=== PATIENT | female | born 1955 | race Two or more races ===

== ENCOUNTER → 2019-02-04 | Outpatient (CLI) | payer BC | END | disposition home or self-care (01) | LOC: LAB 12:34 | PROVIDERS: ATTEND Internal Medicine | DX: E30.0 Delayed puberty (principal) | CPT/HCPCS: 87086 ==

== ENCOUNTER → 2019-05-11 | Outpatient (CLI) | payer BC ==
[2019-05-11 12:46] LABS: Urine WBC None Seen /hpf (0 - 5)
[2019-05-11 13:00] LABS: Basophils # (auto) 0 uL; Basophils % (auto) 0.9 % (0.0-2.0); Eosinophils # (auto) 0 uL; Eosinophils % (auto) 1.1 % (0.0-7.0); Hematocrit 45.8 % (36.0-46.0); Hemoglobin 15.4 g/dL (12.2-16.2); Lymphocytes # (auto) 0.9 uL; Lymphocytes % (auto) 20.5 % (10.0-50.0); Mean Corpuscular Hemoglobin 31.9 pg (28.0-32.0); Mean Corpuscular Hgb Conc. 33.6 g/dL (32.0-36.0); Mean Corpuscular Volume 95.1 fL (80.0-100.0); Monocytes # (auto) 0.4 uL; Monocytes % (auto) 8.8 % (0.0-12.0); Neutrophils # (auto) 2.9 uL; Neutrophils % (auto) 68.7 % (37.0-80.0); Platelet Count (auto) 226 10^3/uL (140-450); Red Blood Cells 4.82 10^6/uL (4.0-5.20); Red Cell Distribution Width 13.1 % (11.8-14.3); Urine Bacteria NONE SEEN /hpf (None Seen); Urine Blood Negative /uL (Negative); Urine Specific Gravity 1.004 (1.001-1.035); White Blood Cell 4.2 10^3/uL (4.4-10.8)
[2019-05-11 13:40] LABS: Potassium 4.2 mmol/L (3.5-5.1)
[2019-05-11 13:53] LABS: Albumin 4.1 g/dL (3.4-5.0); Bilirubin, Total 0.9 mg/dL (0.2-1.0); Calcium 9.5 mg/dL (8.5-10.1); Total Protein 7.3 g/dL (6.4-8.2)
== END | disposition home or self-care (01) ==
LOC: LAB 11:59
PROVIDERS: ATTEND Internal Medicine
DX: E78.5 Hyperlipidemia, unspecified (principal); I10 Essential (primary) hypertension
CPT/HCPCS: 36415; 80053; 80061; 81001; 82306; 84439; 84443; 85025; 86038; 86431

== ENCOUNTER → 2019-09-22 | Outpatient (CLI) | payer BC ==
[~2019-09-22] VITALS: Ht 162.6 cm; Wt 63.5 kg
[~2019-09-22] MED LIST: ADENOSINE 53 MG in GIVE UN-DILUTED 0 ML IV STA
== END | disposition home or self-care (01) ==
LOC: XY 08:22
PROVIDERS: ATTEND Internal Medicine
DX: R00.2 Palpitations (principal); Z95.2 Presence of prosthetic heart valve
CPT/HCPCS: 78452; 93017; A9500; J0153

== ENCOUNTER → 2023-04-24 | Outpatient (CLI) | payer BC | END | disposition home or self-care (01) | LOC: XYW 14:30 | PROVIDERS: ATTEND Student in an Organized Health Care Education/Training Program | DX: I51.89 Other ill-defined heart diseases (principal); I48.0 Paroxysmal atrial fibrillation | CPT/HCPCS: 93306 ==